=== PATIENT | female | born 1950 | race Caucasian/White ===

== ENCOUNTER 2018-01-16 11:49 | Outpatient (CLI) | payer OTHER | END 2018-01-16 15:01 | disposition home or self-care (01) | LOC: TOM 11:49 | DX: M54.2 Cervicalgia (principal) | CPT/HCPCS: 70491; Q9965 ==

== ENCOUNTER 2018-01-21 13:02 | Outpatient (CLI) | payer OTHER | END 2018-01-21 14:25 | disposition home or self-care (01) | LOC: NUCLEAR 13:02 | DX: M81.0 Age-related osteoporosis without current pathological fracture (principal) ==

== ENCOUNTER 2019-02-17 15:25 | Emergency (ER) | payer OTHER ==
[~2019-02-17] VITALS: Ht 152.4 cm; Wt 63.5 kg
== END 2019-02-17 19:57 | disposition home or self-care (01) ==
LOC: ER 15:25
DX: S80.02XA Contusion of left knee, initial encounter (principal); W22.8XXA Striking against or struck by other objects, initial encounter; Y93.89 Activity, other specified; Y92.832 Beach as the place of occurrence of the external cause; Y99.8 Other external cause status

== ENCOUNTER 2019-02-19 14:09 | Outpatient (CLI) | payer OTHER | END 2019-02-19 15:55 | disposition home or self-care (01) | LOC: MRI 14:09 | DX: M25.562 Pain in left knee (principal) | CPT/HCPCS: 73718 ==

== ENCOUNTER → 2021-10-03 | Outpatient (CLI) | payer OTHER | END | disposition home or self-care (01) | LOC: SONOGRAMA 09:38 | PROVIDERS: ATTEND Internal Medicine | DX: N20.0 Calculus of kidney (principal); R19.5 Other fecal abnormalities; R10.11 Right upper quadrant pain ==

== ENCOUNTER 2021-10-12 07:33 | Outpatient (CLI) | payer OTHER | END 2021-10-12 07:34 | disposition home or self-care (01) | LOC: NUCLEAR 07:33 | PROVIDERS: ATTEND Internal Medicine | DX: R19.7 Diarrhea, unspecified (principal) | CPT/HCPCS: 78226; A9537; J2805 ==

== ENCOUNTER 2021-11-03 14:50 | Outpatient (CLI) | payer OTHER | END 2021-11-03 15:02 | disposition home or self-care (01) | LOC: RAD 14:50 | DX: I10 Essential (primary) hypertension (principal); J44.1 Chronic obstructive pulmonary disease with (acute) exacerbation ==

== ENCOUNTER 2022-01-01 12:29 | Emergency (ER) | payer OTHER ==
[~2022-01-01] VITALS: Ht 180.3 cm; Wt 59.9 kg
[2022-01-01] MEDS ORDERED: ADVIL200 MG PO (12:53)
== END 2022-01-01 18:44 | disposition home or self-care (01) ==
LOC: ER 12:29
DX: J44.9 Chronic obstructive pulmonary disease, unspecified (principal); J32.9 Chronic sinusitis, unspecified; R07.89 Other chest pain; Z88.5 Allergy status to narcotic agent; Z88.6 Allergy status to analgesic agent

== ENCOUNTER 2022-03-24 10:23 | Outpatient (CLI) | payer OTHER ==
[~2022-03-24 10:23] MED LIST: ADVIL200 MG PO
== END 2022-03-24 10:43 | disposition home or self-care (01) ==
LOC: RAD 10:23
PROVIDERS: ATTEND Physical Medicine & Rehabilitation
DX: M54.2 Cervicalgia (principal); M54.6 Pain in thoracic spine; M54.50 Low back pain, unspecified

== ENCOUNTER 2022-03-24 13:14 | Outpatient (CLI) | payer OTHER | END 2022-03-24 13:15 | disposition home or self-care (01) | LOC: NUCLEAR 13:14 | PROVIDERS: ATTEND Physical Medicine & Rehabilitation | DX: M81.0 Age-related osteoporosis without current pathological fracture (principal) ==

== ENCOUNTER 2023-01-25 09:00 | Emergency (ER) | payer OTHER ==
[~2023-01-25] VITALS: Ht 180.3 cm; Wt 59.9 kg
== END 2023-01-25 13:31 | disposition home or self-care (01) ==
LOC: ER 09:00
DX: J44.1 Chronic obstructive pulmonary disease with (acute) exacerbation (principal); Z88.8 Allergy status to other drugs, medicaments and biological substances; Z20.822 Contact with and (suspected) exposure to COVID-19

== ENCOUNTER 2023-03-14 11:02 | Outpatient (CLI) | payer OTHER | END 2023-03-14 11:10 | disposition home or self-care (01) | LOC: SONOGRAMA 11:02 | PROVIDERS: ATTEND Family Medicine | DX: R22.1 Localized swelling, mass and lump, neck (principal); M54.2 Cervicalgia; Z87.891 Personal history of nicotine dependence ==

== ENCOUNTER 2023-07-11 12:20 | Outpatient (CLI) | payer OTHER | END 2023-07-11 12:26 | disposition home or self-care (01) | LOC: MAMO-SONO 12:20 | PROVIDERS: ATTEND Family Medicine | DX: Z12.31 Encounter for screening mammogram for malignant neoplasm of breast (principal); N60.19 Diffuse cystic mastopathy of unspecified breast ==

== ENCOUNTER 2023-08-03 11:38 | Emergency (ER) | payer OTHER ==
[~2023-08-03] VITALS: Ht 152.4 cm; Wt 60.8 kg
== END 2023-08-03 20:31 | disposition home or self-care (01) ==
LOC: ER 11:38
PROVIDERS: General Practice
DX: S82.142A Displaced bicondylar fracture of left tibia, initial encounter for closed fracture (principal); Z88.6 Allergy status to analgesic agent; J44.9 Chronic obstructive pulmonary disease, unspecified; F41.9 Anxiety disorder, unspecified; W18.39XA Other fall on same level, initial encounter; Y93.89 Activity, other specified; Y92.018 Other place in single-family (private) house as the place of occurrence of the external cause
CPT/HCPCS: 70140; 71045; 73560; 96372; 99284; J2250; J3490

== ENCOUNTER 2023-08-07 08:57 | Outpatient (CLI) | payer OTHER | END 2023-08-07 09:14 | disposition home or self-care (01) | LOC: TOM 08:57 | PROVIDERS: ATTEND Orthopaedic Surgery | DX: S80.02XA Contusion of left knee, initial encounter (principal); M25.562 Pain in left knee ==

== ENCOUNTER 2023-09-10 09:24 | Outpatient (CLI) | payer OTHER ==
[2023-09-10 10:48] LABS: ALBUMIN 3.6 gm/dL (3.4-5.0); BILIRUBIN TOTAL 0.84 mg/dL (0.3-1.2); CALCIUM 9.9 mg/dL (8.5-10.1); CREATININE SERUM 0.59 mg/dL (0.55-1.02); GFR 100.48; GLOBULINA 3.2 G/DL (2.4-3.5); MAGNESIUM 1.9 mg/dL (1.8-2.4); PHOSPHOROUS 3.6 mg/dL (2.5-4.9); POTASSIUM 3.86 mEq/L (3.5-5.1); TOTAL PROTEIN 6.8 gm/dL (6.4-8.2)
== END 2023-09-10 09:30 | disposition home or self-care (01) ==
LOC: LAB 09:24
PROVIDERS: ATTEND Orthopaedic Surgery
DX: M85.9 Disorder of bone density and structure, unspecified (principal); E56.1 Deficiency of vitamin K; E21.3 Hyperparathyroidism, unspecified; M81.8 Other osteoporosis without current pathological fracture; E88.89 Other specified metabolic disorders; Z88.5 Allergy status to narcotic agent

== ENCOUNTER 2023-09-13 09:29 | Outpatient (CLI) | payer OTHER | END 2023-09-13 09:34 | disposition home or self-care (01) | LOC: RAD 09:29 | PROVIDERS: ATTEND Orthopaedic Surgery | DX: S82.122D Displaced fracture of lateral condyle of left tibia, subsequent encounter for closed fracture with routine healing (principal) ==